=== PATIENT | female | born 1975 | race African-American/Black ===

== ENCOUNTER 2016-08-18 22:56 | Emergency (ER) | payer OTHER ==
[~2016-08-18] VITALS: Ht 157.5 cm; Wt 72.8 kg
[2016-08-18 23:48] LABS: HEMATOCRIT 35.3 % (36.0-46.0); MCH 28.9 PG (29.0-34.0); MCHC 31.4 G/DL (30.0-36.0); MCV 91.9 FL (83-99); MEAN PLAT.VOLUME 9.5 uM^3 (9.5-12.4); PLATELET COUNT 254 K/uL (156-360); RBC DIS.WIDTH-CV 13.7 % (11.8-14.6); RBC DIS.WIDTH-SD 46.4 % (39-53); RED BLOOD COUNT 3.84 M/uL (3.80-5.20); WHITE BLOOD COUNT 6.4 K/uL (4.1-10.2)
[2016-08-18 23:58] LABS: CHLORIDE 108 mEq/L (99-109); POTASSIUM 3.6 mEq/L (3.7-5.4); SODIUM 140 mEq/L (136-147)
[2016-08-19] LABS: GLUCOSE 92 mg/dL (70-99)
[2016-08-19 00:02] LABS: ANION GAP 6 MEQ/L (2-14); TOTAL BILIRUBIN 0.3 mg/dL (0.0-1.0)
[2016-08-19 00:04] LABS: ALKALINE PHOSPHATASE 57 IU/L (3-129); GFR ESTIMATE (CALCULATED) > 59 mL/min/
[2016-08-19 00:05] LABS: UREA NITROGEN (BUN) 11 mg/dL (9-23)
[2016-08-19 00:07] LABS: LIPASE 18 U/L (1.0-51.0)
[2016-08-19 00:16] LABS: QUANTITATIVE HCG < 4.0 MIU/ML
[2016-08-19 01:04] LABS: ADD MIUA? YES; BILIRUBIN NEGATIVE; BLOOD NEGATIVE; COLOR YELLOW ((YELLOW)); GLUCOSE (STRIP) NEGATIVE; KETONES NEGATIVE; LEUKOCYTES TRACE; NITRITE NEGATIVE; PROTEIN (STRIP) 30; SPECIFIC GRAVITY 1.025 (1.000-1.030)
[2016-08-19 01:24] LABS: BACTERIA 1+ /HPF; CASTS NONE SEEN /LPF; CRYSTALS NONE SEEN; EPITHELIAL CELLS RARE /HPF; MUCUS NONE SEEN /LPF; RED BLOOD CELLS 0-5 /HPF (0-5); UCUL ADDED? NO; WHITE BLOOD CELLS 0-5 /HPF (0-5)
[2016-08-19] MEDS ORDERED: MOTRIN600 MG PO (03:57)
[2016-08-19] MEDS ORDERED: NORCO 5/3251 TABLET PO (03:57)
[2016-08-19 04:23] VITALS: BP 130/86
== END 2016-08-19 04:24 | disposition home or self-care (01) ==
LOC: EME 22:56
DX: R10.30 Lower abdominal pain, unspecified (principal); N83.202 Unspecified ovarian cyst, left side; R11.0 Nausea; R10.813 Right lower quadrant abdominal tenderness; F17.200 Nicotine dependence, unspecified, uncomplicated
CPT/HCPCS: 74177; 80053; 81003; 83690; 84702; 85027; 87086; 99281; 99285; J2270; J2405; J7030

== ENCOUNTER 2017-02-17 23:22 | Emergency (ER) | payer OTHER ==
[~2017-02-17] VITALS: Ht 157.5 cm; Wt 72.9 kg
[~2017-02-17 23:22] MED LIST: MOTRIN600 MG PO; NORCO 5/3251 TABLET PO
[2017-02-18 00:05] LABS: HEMATOCRIT 39.3 % (36.0-46.0); MCH 30.6 PG (29.0-34.0); MCHC 32.8 G/DL (30.0-36.0); MCV 93.3 FL (83-99); MEAN PLAT.VOLUME 9.5 uM^3 (9.5-12.4); PLATELET COUNT 227 K/uL (156-360); RBC DIS.WIDTH-CV 12.3 % (11.8-14.6); RBC DIS.WIDTH-SD 42.5 % (39-53); RED BLOOD COUNT 4.21 M/uL (3.80-5.20); WHITE BLOOD COUNT 6.6 K/uL (4.1-10.2)
[2017-02-18 00:17] LABS: CHLORIDE 107 mEq/L (99-109); POTASSIUM 3.5 mEq/L (3.7-5.4); SODIUM 142 mEq/L (136-147)
[2017-02-18 00:19] LABS: GLUCOSE 110 mg/dL (70-99)
[2017-02-18 00:20] LABS: ANION GAP 12 MEQ/L (2-14)
[2017-02-18 00:22] LABS: GFR ESTIMATE (CALCULATED) > 59 mL/min/
[2017-02-18 00:23] LABS: UREA NITROGEN (BUN) 12 mg/dL (9-23)
[2017-02-18] MEDS ORDERED: PREDNISONE20 MG PO (03:15)
[2017-02-18] MEDS ORDERED: ALBUTEROL2.5 MG/3 M IH (03:15)
[2017-02-18 03:58] VITALS: BP 150/89
== END 2017-02-18 04:00 | disposition home or self-care (01) ==
LOC: EME 23:22
DX: J45.909 Unspecified asthma, uncomplicated (principal); R06.00 Dyspnea, unspecified; R07.89 Other chest pain; F17.200 Nicotine dependence, unspecified, uncomplicated; Z88.8 Allergy status to other drugs, medicaments and biological substances
CPT/HCPCS: 71020; 80048; 85027; 93005; 94640; 99281; 99284; J7512

== ENCOUNTER 2017-10-10 23:18 | Emergency (ER) | payer OTHER ==
[~2017-10-10] VITALS: Ht 157.5 cm; Wt 72.2 kg
[~2017-10-10 23:18] MED LIST changes: +ALBUTEROL2.5 MG/3 M IH; +PREDNISONE20 MG PO
[2017-10-10 23:58] LABS: HEMATOCRIT 35.7 % (36.0-46.0); HEMOGLOBIN 12.1 G/DL (11.9-15.5); MCH 30.6 PG (29.0-34.0); MCHC 33.9 G/DL (30.0-36.0); MCV 90.2 FL (83-99); PLATELET COUNT 244 K/uL (156-360); RBC DIS.WIDTH-CV 12.5 % (11.8-14.6); RBC DIS.WIDTH-SD 41.4 % (39-53); RED BLOOD COUNT 3.96 M/uL (3.80-5.20); WHITE BLOOD COUNT 6.9 K/uL (4.1-10.2)
[2017-10-11 00:10] LABS: ALBUMIN 3.8 g/dL (3.2-4.8)
[2017-10-11 00:11] LABS: CHLORIDE 110 mEq/L (99-109); POTASSIUM 3.4 mEq/L (3.7-5.4); SODIUM 140 mEq/L (136-147)
[2017-10-11 00:13] LABS: GLUCOSE 99 mg/dL (70-99); TOTAL PROTEIN 6.7 g/dL (6.4-8.3)
[2017-10-11 00:15] LABS: TOTAL BILIRUBIN 0.4 mg/dL (0.0-1.0)
[2017-10-11 00:16] LABS: ALKALINE PHOSPHATASE 64 IU/L (3-129)
[2017-10-11 00:17] LABS: CREATININE 0.8 mg/dL (0.6-1.3); GFR ESTIMATE (CALCULATED) > 59 mL/min/
[2017-10-11 00:18] LABS: AST (GOT) 13 IU/L (2-34); UREA NITROGEN (BUN) 11 mg/dL (9-23)
[2017-10-11 00:19] LABS: ALT (GPT) 7 IU/L (3-49)
[2017-10-11 00:20] LABS: LIPASE 18 U/L (1.0-51.0)
[2017-10-11 00:26] LABS: QUANTITATIVE HCG < 4.0 MIU/ML
[2017-10-11] MEDS ORDERED: PERCOCET 5/31 TABLET PO (02:34)
[2017-10-11] MEDS ORDERED: NAPROXEN500 MG PO (02:34)
[2017-10-11 02:44] LABS: APPEARANCE SL.HAZY ((CLEAR)); BILIRUBIN NEGATIVE; BLOOD NEGATIVE; COLOR YELLOW ((YELLOW)); GLUCOSE (STRIP) NEGATIVE; KETONES NEGATIVE; LEUKOCYTES NEGATIVE; NITRITE NEGATIVE; PROTEIN (STRIP) 30; SPECIFIC GRAVITY 1.023 (1.000-1.030)
[2017-10-11 02:49] LABS: BACTERIA RARE /HPF; EPITHELIAL CELLS RARE /HPF; MUCUS 1+ /LPF; UCUL ADDED? NO; WHITE BLOOD CELLS 0-5 /HPF (0-5)
[2017-10-11 02:55] VITALS: BP 138/96
== END 2017-10-11 02:56 | disposition home or self-care (01) ==
LOC: EME 23:18
DX: N83.201 Unspecified ovarian cyst, right side (principal); J45.909 Unspecified asthma, uncomplicated; F17.200 Nicotine dependence, unspecified, uncomplicated; Z98.890 Other specified postprocedural states; Z87.42 Personal history of other diseases of the female genital tract; Z88.2 Allergy status to sulfonamides; Z88.8 Allergy status to other drugs, medicaments and biological substances
CPT/HCPCS: 76856; 80053; 81003; 83690; 84702; 85027; 87210; 99281; 99285; J1885

== ENCOUNTER 2017-10-24 20:52 | Emergency (ER) | payer OTHER ==
[~2017-10-24] VITALS: Ht 157.5 cm; Wt 70.3 kg
[~2017-10-24 20:52] MED LIST changes: +NAPROXEN500 MG PO; +PERCOCET 5/31 TABLET PO
[2017-10-24 21:28] LABS: HEMATOCRIT 35.5 % (36.0-46.0); HEMOGLOBIN 11.8 G/DL (11.9-15.5); MCH 30.4 PG (29.0-34.0); MCHC 33.2 G/DL (30.0-36.0); MCV 91.5 FL (83-99); PLATELET COUNT 268 K/uL (156-360); RBC DIS.WIDTH-CV 12.2 % (11.8-14.6); RBC DIS.WIDTH-SD 41.2 % (39-53); RED BLOOD COUNT 3.88 M/uL (3.80-5.20)
[2017-10-24 21:39] LABS: CHLORIDE 103 mEq/L (99-109); POTASSIUM 3.8 mEq/L (3.7-5.4); SODIUM 139 mEq/L (136-147)
[2017-10-24 21:41] LABS: GLUCOSE 99 mg/dL (70-99)
[2017-10-24 21:42] LABS: TOTAL PROTEIN 7.4 g/dL (6.4-8.3)
[2017-10-24 21:43] LABS: TOTAL BILIRUBIN 0.2 mg/dL (0.0-1.0)
[2017-10-24 21:45] LABS: ALKALINE PHOSPHATASE 88 IU/L (3-129); CREATININE 0.9 mg/dL (0.6-1.3); GFR ESTIMATE (CALCULATED) > 59 mL/min/
[2017-10-24 21:46] LABS: UREA NITROGEN (BUN) 20 mg/dL (9-23)
[2017-10-24 21:47] LABS: AST (GOT) 13 IU/L (2-34)
[2017-10-24 21:48] LABS: ALT (GPT) 9 IU/L (3-49)
[2017-10-24 21:55] LABS: QUANTITATIVE HCG < 4.0 MIU/ML
[2017-10-24 22:57] LABS: APPEARANCE SL.HAZY ((CLEAR)); BILIRUBIN SMALL; BLOOD NEGATIVE; COLOR AMBER ((YELLOW)); GLUCOSE (STRIP) NEGATIVE; KETONES 5; LEUKOCYTES TRACE; NITRITE NEGATIVE; PROTEIN (STRIP) 30; SPECIFIC GRAVITY 1.045 (1.000-1.030)
[2017-10-25 00:03] LABS: EPITHELIAL CELLS 2+ /HPF; MUCUS 3+ /LPF; RED BLOOD CELLS RARE /HPF (0-5); WHITE BLOOD CELLS NONE SEEN /HPF (0-5)
[2017-10-25 00:04] LABS: BACTERIA RARE /HPF; UCUL ADDED? NO
[2017-10-25] MEDS ORDERED: ZOFRAN ODT4 MG PO (01:16)
[2017-10-25] MEDS ORDERED: PERCOCET 5/31 TABLET PO (01:16)
[2017-10-25 01:33] VITALS: BP 121/94
== END 2017-10-25 01:34 | disposition home or self-care (01) ==
LOC: EME 20:52
DX: N83.201 Unspecified ovarian cyst, right side (principal); J45.909 Unspecified asthma, uncomplicated; F17.200 Nicotine dependence, unspecified, uncomplicated; Z88.2 Allergy status to sulfonamides
CPT/HCPCS: 76856; 80053; 81003; 84702; 85027; 99281; 99283